=== PATIENT | female | born 1965 | race Caucasian/White ===

== ENCOUNTER 2020-10-24 08:33 | Emergency (ER) | payer BC ==
[~2020-10-24] VITALS: Ht 154.9 cm; Wt 80.9 kg
[~2020-10-24 08:33] MED LIST: ASCO-262 PO; CHOL20002 PO; IBUP-1780 PO; VITA1CAP PO
--- NOTE | 2020-10-24 08:41 | ED Chest Pain ---
General Stated Complaint: CHEST PAIN History of Present Illness Date Seen by Provider: Oct 24, 2020 Time Seen by Provider: 08:39 Initial Comments 54-year-old female with no significant past medical history presents by private vehicle with onset of chest pain occurring proximally 30 minutes prior to arrival. Chest pain occurred at rest, while sitting at a desk at home. Pain was described as tightness in the lower center of her chest without radiation. No associated diaphoresis or shortness of air. Denies recent illness, fever chills or cough. Denies history of heart disease or history of cardiac work-up in the past. States positive family history of cardiac disease. Otherwise on no medication, takes occasional Tums for reflux sx. Chest pain resolved upon arrival to the ER. Allergies and Home Medications Allergies Coded Allergies: No Known Drug Allergies (Unverified , 04/03/16) Home Medications Ascorbate Calcium 500 Mg Tablet, 500 MG PO DAILY, (Reported) Last Action: Last Taken Edited Cholecalciferol (Vitamin D3) 2,000 Unit Capsule, 2,000 UNIT PO DAILY, (Reported) Last Action: Last Taken Edited Ibuprofen 800 Mg Tablet, 800 MG PO DAILY, (Reported) Last Action: Last Taken Edited Vitamin B Complex 1 Each Capsule, 1 EACH PO DAILY, (Reported) Last Action: Last Taken Edited Patient Home Medication List Home Medication List Reviewed: Yes Review of Systems Review of Systems Constitutional: No chills, No dizziness, No fever, No malaise, No weakness EENTM: No Symptoms Reported Respiratory: Denies Cough, Denies Shortness of Air Cardiovascular: See HPI, Chest Pain; Denies Edema, Denies Irregular Heart Rate, Denies Lightheadedness, Denies Palpitations Gastrointestinal: Denies Abdominal Pain, Denies Nausea, Denies Vomiting Musculoskeletal: No back pain, No joint pain, No muscle pain Skin: No change in color, No rash Psychiatric/Neurological: Denies Headache, Denies Numbness, Denies Paresthesia Past Gchjlnx-Kquhlh-Cjlwxv Hx Past Med/Social Hx: Reviewed Nursing Past Med/Soc Hx Patient Social History Recent Hopitalizations: No Seasonal Allergies Seasonal Allergies: No Past Medical History Section, Tonsillectomy, Tubal Ligation Currently Using CPAP: No Reproductive Disorders: No Female Reproductive Disorders: Denies Sexually Transmitted Disease: No HIV/AIDS: No Gastroesophageal Reflux Loss of Vision: Bilateral Hearing Impairment: Denies Adverse Reaction/Blood Tranf: No (N/A) Physical Exam Vital Signs Vital Signs - First Documented Capillary Refill : Height, Weight, BMI Height: 5'1.00" Weight: 174lbs. 0.0oz. 78.491909sl; 32.9 BMI Method: General Appearance: No Apparent Distress, WD/WN Respiratory: Chest Non Tender, Lungs Clear, Normal Breath Sounds, No Accessory Muscle Use, No Respiratory Distress Cardiovascular: Regular Rate, Rhythm, No Edema, No Gallop, No JVD Gastrointestinal: Non Tender, Soft Extremity: Normal Range of Motion, Non Tender Neurologic/Psychiatric: Alert, Oriented x3, No Motor/Sensory Deficits Skin: Normal Color, Warm/Dry Progress/Results/Core Measures Results/Orders Lab Results Laboratory Tests Test 10/24/20 08:39 10/24/20 10:30 Range/Units White Blood Count 7.3 4.3-11.0 10^3/uL Red Blood Count 4.89 4.35-5.85 10^6/uL Hemoglobin 13.7 11.5-16.0 G/DL Hematocrit 42 35-52 % Mean Corpuscular Volume 87 80-99 FL Mean Corpuscular Hemoglobin 28 25-34 PG Mean Corpuscular Hemoglobin Concent 32 32-36 G/DL Red Cell Distribution Width 14.2 10.0-14.5 % Platelet Count 336 130-400 10^3/uL Mean Platelet Volume 11.2 H 7.4-10.4 FL Immature Granulocyte % (Auto) 0 % Neutrophils (%) (Auto) 47 42-75 % Lymphocytes (%) (Auto) 39 12-44 % Monocytes (%) (Auto) 5 0-12 % Eosinophils (%) (Auto) 9 0-10 % Basophils (%) (Auto) 0 0-10 % Neutrophils # (Auto) 3.4 1.8-7.8 X 10^3 Lymphocytes # (Auto) 2.9 1.0-4.0 X 10^3 Monocytes # (Auto) 0.4 0.0-1.0 X 10^3 Eosinophils # (Auto) 0.7 H 0.0-0.3 10^3/uL Basophils # (Auto) 0.0 0.0-0.1 10^3/uL Immature Granulocyte # (Auto) 0.0 0.0-0.1 10^3/uL Sodium Level 139 135-145 MMOL/L Potassium Level 3.2 L 3.6-5.0 MMOL/L Chloride Level 104 98-107 MMOL/L Carbon Dioxide Level 23 21-32 MMOL/L Anion Gap 12 5-14 MMOL/L Blood Urea Nitrogen 11 7-18 MG/DL Creatinine 0.61 0.60-1.30 MG/DL Estimat Glomerular Filtration Rate > 60 BUN/Creatinine Ratio 18 Glucose Level 121 H 70-105 MG/DL Calcium Level 9.4 8.5-10.1 MG/DL Corrected Calcium 9.2 8.5-10.1 MG/DL Total Bilirubin 0.5 0.1-1.0 MG/DL Aspartate Amino Transf (AST/SGOT) 35 H 5-34 U/L Alanine Aminotransferase (ALT/SGPT) 29 0-55 U/L Alkaline Phosphatase 120 40-136 U/L Troponin I < 0.30 <0.30 NG/ML Total Protein 6.7 6.4-8.2 GM/DL Albumin 4.2 3.2-4.5 GM/DL My Orders Orders - ROVENSTINEHARMEET DO Ed Iv/Invasive Line Start (10/24/20 08:39) Chest 1 View Ap/Pa Only (10/24/20 08:39) Ekg Tracing (10/24/20 08:39) Troponin I Fs (10/24/20 08:39) Cbc With Automated Diff (10/24/20 08:39) Comprehensive Metabolic Panel (10/24/20 08:39) Aspirin Chewable Tablet (Baby Aspirin Ch (10/24/20 08:45) Troponin I Fs (10/24/20 10:30) Medications Given in ED Current Medications Medications Dose Ordered Sig/Fiona Route Start Time Stop Time Status Last Admin Dose Admin Aspirin 324 mg ONCE ONCE PO 10/24/20 08:45 10/24/20 08:46 DC 10/24/20 08:47 324 MG Vital Signs/I&O 10/24/20 10/24/20 08:35 08:35 Temp 35.2 Pulse 77 Resp 16 B/P (MAP) 159/81 (107) Pulse Ox 98 O2 Delivery Room Air Room Air Progress Progress Note : Time: 09:22 Progress Note Patient still pain-free, reviewed normal labs including negative troponin and normal chest x-ray. Explained we will repeat her troponin in 1 hour and if negative will discharge home with plans for cardiology follow-up including a stress test. Initial ECG Impression Date: Oct 24, 2020 Initial ECG Impression Time: 08:35 Initial ECG Rate: 60 Initial ECG Rhythm: Normal Sinus Initial ECG Intervals: Normal Initial ECG Impression: Normal Initial ECG Comparisson: No Previous ECG Available Comment NO acute ST changes. Old inferior infarct Diagnostic Imaging Diagonstic Imaging: Xray Plain Films/CT/US/NM/MRI: chest Comments Date of Exam:10/24/20 CHEST 1 VIEW AP/PA ONLY CHEST 1 VIEW AP/PA ONLY Indication: Chest pain. Comparison: None available. Findings: No focal airspace disease in the visualized lungs. Please note that the posterior lower lobes are poorly evaluated by portable radiography. No pleural effusion or pneumothorax. Normal cardiomediastinal silhouette. Impression: 1. No acute cardiopulmonary process by portable radiography. Dictated by: Dictated on workstation # [id number] Dict: 10/24/20 0858 Trans: 10/24/20 0859 [facility] [id number] Interpreted by: ODETTE FERNANDES MD Electronically signed by: ODETTE FERNANDES MD 10/24/20 0859 Departure Impression Primary Impression: Chest pain Qualified Codes: R07.9 - Chest pain, unspecified Disposition: 01 HOME, SELF-CARE Condition: Stable Departure-Patient Inst. Referrals: D[facility] STARR [facility] F[facility] DENNYS CRAVEN MD (PCP/Family) Primary Care Physician ZEB POST MD Add. Discharge Instructions: Call your Primary Care doctor (or one of the Cardiologists listed) to schedule yourself for a stress test in 1 week. RETURN to the ER for any return of persistent chest pain. You are advised to take a BABY aspirin (81mg) daily until told otherwise by a physician. Take Nitroglycerin as instructed for any chest pain. You may take one every 5 minutes (up to a total of 3 doses), if chest pain unrelieved, call 911. Scripts Nitroglycerin (Nitroglycerin) 0.4 Mg Tab.subl 0.4 MG SL UD PRN for CHEST PAIN, #20 TAB Prov: IRMASTHARMEET VALENTINE DO 10/24/20 HARMEET COOPER DO Oct 24, 2020 08:41
[2020-10-24] MEDS ORDERED: ASPIRIN 81 MG CHEW (CHILDREN'S ASA) PO ONE (08:45)
[2020-10-24] MEDS ORDERED: Primrose (08:55)
[2020-10-24] MEDS ORDERED: GOLI (08:55)
--- NOTE | 2020-10-24 09:00 | Diagnostic Imaging Report ---
CHEST 1 VIEW AP/PA ONLY Indication: Chest pain. Comparison: None available. Findings: No focal airspace disease in the visualized lungs. Please note that the posterior lower lobes are poorly evaluated by portable radiography. No pleural effusion or pneumothorax. Normal cardiomediastinal silhouette. Impression: 1. No acute cardiopulmonary process by portable radiography. Dictated by: Dictated on workstation # [id number]
[2020-10-24 09:01] LABS: HEMATOCRIT 42 % (35-52); HEMOGLOBIN 13.7 G/DL (11.5-16.0); LYMPHOCYTES % (AUTO) 39 % (12-44); MEAN CORPUSCULAR HEMOGLOBIN 28 PG (25-34); MEAN CORPUSCULAR HGB CONC 32 G/DL (32-36); MEAN CORPUSCULAR VOLUME 87 FL (80-99); MEAN PLATELET VOLUME 11.2 FL (7.4-10.4); MONOCYTES % (AUTO) 5 % (0-12); PLATELET COUNT 336 10^3/uL (130-400); WHITE BLOOD COUNT 7.3 10^3/uL (4.3-11.0)
[2020-10-24 09:02] LABS: BASOPHILS % (AUTO) 0 % (0-10); EOSINOPHILS # (AUTO) 0.7 10^3/uL (0.0-0.3); EOSINOPHILS % (AUTO) 9 % (0-10); LYMPHOCYTES # (AUTO) 2.9 X 10^3 (1.0-4.0); MONOCYTES # (AUTO) 0.4 X 10^3 (0.0-1.0); NEUTROPHILS # (AUTO) 3.4 X 10^3 (1.8-7.8); NEUTROPHILS % (AUTO) 47 % (42-75)
[2020-10-24 09:11] LABS: ALANINE AMINOTRANSFERASE 29 U/L (0-55); ALBUMIN 4.2 GM/DL (3.2-4.5); ALKALINE PHOSPHATASE 120 U/L (40-136); BILIRUBIN,TOTAL 0.5 MG/DL (0.1-1.0); BUN/CREATININE RATIO 18; CALCIUM 9.4 MG/DL (8.5-10.1); CARBON DIOXIDE 23 MMOL/L (21-32); CHLORIDE 104 MMOL/L (98-107); CREATININE SERUM 0.61 MG/DL (0.60-1.30); GFR ESTIMATED > 60; GLUCOSE 121 MG/DL (70-105); POTASSIUM 3.2 MMOL/L (3.6-5.0); SODIUM 139 MMOL/L (135-145); TOTAL PROTEIN 6.7 GM/DL (6.4-8.2)
[2020-10-24] MEDS ORDERED: NITR0.4T39 SL (11:24)
[2020-10-24 11:26] VITALS: BP 125/81
== END 2020-10-24 11:26 | disposition home or self-care (01) ==
LOC: EDUNIT# 08:33 → ER FS 08:35
DX: R07.9 Chest pain, unspecified (principal)
CPT/HCPCS: 36415; 71045; 80053; 84484; 85025; 93005

== ENCOUNTER → 2020-11-20 | Outpatient (CLI) | payer BC ==
[~2020-11-20] MED LIST changes: +GOLI; +NITR0.4T39 SL; +Primrose
[2020-11-20 15:23] LABS: TSH (THYROID ANALYZER) 2.03 UIU/ML (0.35-4.94)
== END ==
LOC: LAB FS 10:01
PROVIDERS: ATTEND Student in an Organized Health Care Education/Training Program
DX: R07.9 Chest pain, unspecified (principal)
CPT/HCPCS: 36415; 80061; 83036; 84443